=== PATIENT | female | born 1945 | race Two or more races ===

== ENCOUNTER 2024-08-03 14:22 | Emergency (ER) | payer BC, OTHER ==
[2024-08-03 15:18] VITALS: BP 133/101; PULSE 86; RESP 18; TEMP 98.7; BMI 24.5
[2024-08-03 15:46] LABS: EPI CELLS 6 /uL (0-25.1); HYALINE CASTS 0 /uL (0-3.1); URINE APPEARANCE CLEAR; URINE BACTERIA 17 /uL (0-1359); URINE BILIRUBIN NEGATIVE (NEGATIVE); URINE COLOR ORANGE; URINE GLUCOSE (UA) 3+ (NEGATIVE); URINE KETONE NEGATIVE (NEGATIVE); URINE LEUK ESTERASE NEGATIVE (NEGATIVE); URINE NITRITE NEGATIVE (NEGATIVE); URINE PROTEIN NEGATIVE (NEGATIVE); URINE RBC 2709 /uL (0-23.9); URINE UROBILINOGEN 0.2 mg/dL (0.2-1.0); URINE WBC 21 /uL (0-25.8)
[2024-08-03 15:46] LABS: BASO % 0.9 % (0-2.0); EOS % 3.4 % (0-4.5); HEMATOCRIT 39.3 % (32.4-45.2); HEMOGLOBIN 13.5 GM/dL (10.7-15.3); LYMPH % 51.5 % (8-40); MCH 29.9 pg (25.7-33.7); MCHC 34.3 g/dl (32.0-36.0); MEAN CELL VOLUME 87.3 fl (80-96); MEAN PLT VOLUME 8.1 fl (7.5-11.1); MONO % 8.1 % (3.8-10.2); NEUT % 36.1 % (42.8-82.8); PLATELET COUNT 281 10^3/uL (134-434); RDW 13.7 % (11.6-15.6); WHITE BLOOD COUNT 5.8 K/mm3 (4.0-10.0)
[2024-08-03 15:50] LABS: PROTHROMBIN TIME (PATIENT) 11.3 SEC (9.7-13.0)
[2024-08-03 15:53] LABS: ACTIVATED PTT 35.1 SECONDS (25.2-36.5)
[2024-08-03 16:32] LABS: POTASSIUM 4.6 mmol/L (3.5-5.1)
[2024-08-03 16:35] LABS: CALCIUM 9.5 mg/dL (8.5-10.1)
[2024-08-03 16:36] LABS: ALBUMIN 3.4 g/dl (3.4-5.0); BLOOD UREA NITROGEN 17.1 mg/dL (7-18)
[2024-08-03 16:39] LABS: CREATININE 0.9 mg/dL (0.55-1.3)
[2024-08-03 16:41] LABS: BILIRUBIN,TOTAL 0.4 mg/dL (0.2-1); TOT PROT 7.5 g/dl (6.4-8.2)
== END 2024-08-03 19:24 | disposition home or self-care (01) ==
LOC: JER 14:22
DX: N93.9 Abnormal uterine and vaginal bleeding, unspecified (principal); R10.31 Right lower quadrant pain; R10.32 Left lower quadrant pain; N85.00 Endometrial hyperplasia, unspecified
CPT/HCPCS: 36415; 76830-TC; 80053; 81003; 82962; 85025; 85610; 85730; 86850; 86900; 86901; 87077; 87086; 87186; 93005; 93010; 99285-25